=== PATIENT | female | born 1965 | race Caucasian/White ===

== ENCOUNTER 2019-04-10 08:35 | Emergency (ER) | payer MEDICAID ==
[2019-04-10] MEDS: IPRATROPIUM (NEB) 0.5 MG/2.5 ML AMP INH (08:58)
[2019-04-10] MEDS: ALBUTEROL 0.083% (NEB) 2.5 MG/3 ML AMP INH (08:58)
[2019-04-10 09:06] LABS: ADD MAN DIFF? NO
[2019-04-10 09:08] LABS: BASOPHIL # 0.1 10^3/ul (0.0-0.1); BASOPHILS % 0.4 % (0.0-2.0); EOSINOPHILS # 0.3 10^3/ul (0.0-0.5); EOSINOPHILS % 2.4 % (0.0-7.0); HEMATOCRIT 30.5 % (37.0-47.0); HEMOGLOBIN 10.1 g/dl (12.0-16.0); LYMPHOCYTES # 3.7 10^3/ul (0.8-2.9); LYMPHOCYTES % 27.9 % (15.0-51.0); MEAN CORPUSCULAR HEMOGLOBIN 29.2 pg (29.0-33.0); MEAN CORPUSCULAR HGB CONC 33.1 g/dl (32.0-37.0); MEAN CORPUSCULAR VOLUME 88.2 fl (82.0-101.0); MEAN PLATELET VOLUME 9.9 fl (7.4-10.4); MONOCYTE # 0.7 10^3/ul (0.3-0.9); MONOCYTES % 5.3 % (0.0-11.0); NEUTROPHIL # 8.4 10^3/ul (1.6-7.5); NEUTROPHILS % 63.6 % (39.0-77.0); PLATELET COUNT 224 10^3/UL (140-415); RED BLOOD COUNT 3.46 10^6/ul (4.20-5.40); RED CELL DISTRIBUTION WIDTH 15.1 % (11.5-14.5)
[2019-04-10 09:08] LABS: WHITE BLOOD COUNT 13.1 10^3/ul (4.8-10.8)
[2019-04-10 09:13] LABS: AADO2 Arterial 189.7 mmHg (7.0-24.0); Allen Test ACCEPTAB; Arterial Base Excess -1.4 mmol/L (-3.0-3); Arterial Blood Gas Oxygen Sat 97.3 mmHG (95.0-98.0); Arterial COHb 0.5 % (0.0-3.0); Arterial Fraction of Oxyhgb 96.5 % (93.0-99.0); Arterial HCO3 21.5 mmol/L (22.0-26.0); Arterial MetHb 0.3 % (0.0-1.5); Arterial pCO2 30.1 mmhg (35-45); MODE MASK - SIMPLE; Site Right Radial
[2019-04-10] MEDS: FUROSEMIDE 40 MG INJ IV (09:15)
[2019-04-10] MEDS: NITROGLYCERIN 2% 1 GM OINT PKT TD (09:25)
[2019-04-10 09:27] LABS: ALANINE AMINOTRANSFERASE 35 IU/L (13-69); ALBUMIN 3.6 g/dl (3.3-4.9); ALBUMIN/GLOBULIN RATIO 1.02; ALKALINE PHOSPHATASE 90 IU/L (42-121); ANION GAP 10 (5-13); ASPARTATE AMINO TRANSFERASE 42 IU/L (15-46); BLOOD UREA NITROGEN 40 mg/dl (7-20); CALCIUM 9.3 mg/dl (8.4-10.2); CARBON DIOXIDE 26 mmol/L (21-31); CHLORIDE 97 mmol/L (97-110); CREATININE 2.82 mg/dl (0.44-1.00); Estimated GFR 17 mL/min (>60); GLUCOSE 143 mg/dl (70-220); POTASSIUM 3.5 mmol/L (3.5-5.1); SODIUM 133 mmol/L (135-144); TOTAL PROTEIN 7.1 g/dl (6.1-8.1)
[2019-04-10 09:28] LABS: INR 0.93; PROTIME 12.6 Sec (11.9-14.9)
[2019-04-10 09:29] LABS: PARTIAL THROMBOPLASTIN TIME 31.2 Sec (23.0-35.0)
[2019-04-10] MEDS ORDERED: NITROGLYCERIN 0.4 MG/HR PATCH TRANSDERM (09:30)
[2019-04-10 09:31] LABS: D-DIMER 2256.84 ng/ml (<460)
[2019-04-10 09:39] LABS: TROPONIN-I 0.103 ng/ml (0.000-0.120)
[2019-04-10] MEDS ORDERED: NITROGLYCERIN 50 MG/D5W (PMX) 250 ML (09:40)
[2019-04-10] MEDS: NITROGLYCERIN 0.3 MG/HR PATCH TRANSDERM (09:40)
[2019-04-10 09:59] LABS: B-TYPE NATRIURETIC PEPTIDE 54300 PG/ML (0-125)
[2019-04-10] MEDS: NITROGLYCERIN 50 MG/D5W (PMX) 250 ML IV ×2 (10:00→10:28)
[2019-04-10] MEDS ORDERED: METOPROLOL 5 MG INJ (10:19)
[2019-04-10] MEDS: METOPROLOL 5 MG INJ IV (10:23)
[2019-04-10] MEDS: SOD CHLORIDE 0.9% 100 ML ×2 (10:24→10:29)
[2019-04-10] MEDS: IODIXANOL LOCM 100 ML BTL ×2 (10:25→10:30)
[2019-04-10] MEDS: niCARdipine-NS 0.1MG/ML DRIP 200 ML IV (11:02)
[2019-04-10] MEDS ORDERED: morphine 2 MG INJ (11:19)
[2019-04-10] MEDS: morphine 2 MG INJ IV ×2 (11:20→12:05)
[2019-04-10 11:47] LABS: LACTIC ACID 2.2 mmol/L (0.5-2.0)
[2019-04-10] MEDS ORDERED: morphine 2 MG INJ IV (12:52)
== END 2019-04-10 13:51 | disposition short-term general hospital (02) ==
LOC: E/R 08:35
DX: I71.00 Dissection of unspecified site of aorta (principal); I50.9 Heart failure, unspecified; I11.0 Hypertensive heart disease with heart failure; N19 Unspecified kidney failure
CPT/HCPCS: 36415; 36600; 71045; 71275; 75635; 80053; 82803; 83605; 83880; 84484; 85025; 85378; 85610; 85730; 87040-91; 93005; 94664; 96374; 96375; 96376; 99285-25